=== PATIENT | male | born 1970 | race Caucasian/White ===

== ENCOUNTER 2021-02-05 07:48 | Emergency (ER) | payer OTHER ==
[~2021-02-05] VITALS: Ht 175.3 cm; Wt 102.1 kg
[2021-02-05 07:51] VITALS: BP 161/91
[2021-02-05 08:23] LABS: ABSOLUTE NEUTROPHILS 3.4 thou/uL (1.4-8.2); EOSINOPHILS 2.2 % (0.0-3.0); HEMATOCRIT 48.1 % (42.0-52.0); HEMOGLOBIN 16.2 gm/dL (14.0-18.0); LYMPHOCYTES 25.5 % (24.0-44.0); MCH 29.1 pg (26.0-34.0); MCHC 33.7 g/dL (28.0-37.0); MCV 86.3 fL (80.0-100.0); MONOCYTES 9.5 % (1.0-8.0); PLATELET COUNT 171 thou/uL (150-400); POLYS 61.8 % (36.0-66.0); RBC 5.57 mil/uL (4.50-6.00); RDW 14.5 % (10.5-14.5); WBC 5.4 thou/uL (4.0-11.0)
[2021-02-05 08:32] LABS: ANION GAP 7 mmol/L (7-16); BUN 25 mg/dL (7-18); CALCIUM 9.2 mg/dL (8.5-10.1); CHLORIDE 103 mmol/L (98-107); CO2 28 mmol/L (21-32); GLUCOSE 100 mg/dL (74-106); POTASSIUM 4.4 mmol/L (3.5-5.1); SODIUM 138 mmol/L (136-145)
--- NOTE | 2021-02-05 08:34 | EKG ---
[place] [address] [employer] [place] [address] ELECTROCARDIOGRAM REPORT Name: TOM CHENG Room #: REG CODEY Reyes#: [id number] Admission: 02/05/21 Attend Phys: Discharge: Date of : 70 Report #: [id number] [facility] ED Test Date: 2021-02-05 Test Time: 08:00:49 Pat Name: TOM CHENG Department: Room: Gender: M [employer]ounter [employer]: VANI : 1970 Requested By: Dipika Zambrano Order Number: [id number] MD: Len Morrissey Measurements Intervals [place] Rate: 82 P: 33 HI: 154 QRS: -3 QRSD: 91 T: 1 QT: 340 QTc: 397 Interpretive Statements Sinus rhythm Possible inferior infarct, old No previous ECG available for comparison Electronically Signed On 02-05-2021 8:34:08 CDT by Len Morrissey [email or web address] <ELECTRONICALLY SIGNED> By: Len Morrissey MD, MERGED WITH [facility] 02/05/21 0834 08 08 Len Morrissey MD, FACC /EPI
[2021-02-05 08:43] LABS: ALBUMIN 3.9 g/dL (3.4-5.0); MAGNESIUM 1.9 mg/dL (1.8-2.4); SGOT 21 U/L (15-37); SGPT 32 U/L (16-63); TOTAL BILIRUBIN 0.7 mg/dL (0.2-1.0); TOTAL PROTEIN 7.2 g/dL (6.4-8.2); TROPONIN-I <0.06 ng/mL (<0.06)
[2021-02-05] MEDS ORDERED: AMLODIPINE BESY10 MG PO (08:45)
[2021-02-05] MEDS ORDERED: BENAZEPRIL HCL40 MG PO (08:45)
[2021-02-05] MEDS ORDERED: TESTOSTERO200 MG/1 M IM (08:46)
[2021-02-05] MEDS ORDERED: TADALAFIL20 M1 PO (08:46)
[2021-02-05] MEDS ORDERED: ROSUVASTATIN CA20 MG PO (08:47)
[2021-02-05 10:44] VITALS: BP 136/83
[2021-02-05 10:45] VITALS: BP 136/83
[2021-02-05 10:58] VITALS: BP 132/86
[2021-02-05 12:01] LABS: CHOLESTEROL 202 mg/dL (<200); HDL CHOLESTEROL 41 mg/dL (>40); LDL CHOLESTEROL 134 mg/dL (<100); TC:HDL 4.9 Ratio (Not establshd); TRIGLYCERIDE 135 mg/dL (<150); VLDL 27 mg/dL (<40)
[2021-02-05] MEDS ORDERED: ASA81BEC PO (13:08)
--- NOTE | 2021-02-05 13:29 | EXE ---
[facility] [place] [address] STRESS ECHOCARDIOGRAM Name: TOM CHENG Room #: 170-11 ADM IN M.R.#: [id number] Admission: 02/05/21 Attend Phys: Ross Hill MD Discharge: Date of : 70 Report #: [id number] THIS REPORT FOR: cc: Kennedy Rodriguez MD, David E MD Lundgren, Craig H. MD [facility] ~ APPROVED REPORT Study performed: 02/05/2021 10:45:25 Exam: Stress Echocardiogram Indication: Chest pain Patient Location: ER Stress Nurse: Reena Dumont RN Room #: 11 Status: routine Ht: 5 ft 9 in HR: 93 bpm BP: 146/90 mmHg Rhythm: NSR Medical History Cardiac Risk Factors: HTN, FHX of CAD Exercise History: Indeterminate Procedure The patient underwent an Exercise Stress Test using the Harvey Protocol. Blood pressure, heart rate, and EKG were monitored. An Echocardiogram was performed by target aircraft technician in four stages in quad fashion. At peak stress, four selected images were obtained and placed side by side with resting images for comparison. Stress Test Details Stress Test: Exercise stress testing was performed using a Harvey protocol. HR Resting HR: 93 bpm Max Heart Rate (APMHR): 170 bpm Max HR Achieved: 155 bpm Target HR (85% APMHR): 144 bpm % of APMHR: 91 Recovery HR: 93 bpm HR response to stress: Normal HR response to stress BP Resting BP: 146/90 mmHg [facility] [address] [place] [address] STRESS ECHOCARDIOGRAM Name: TOM CHENG Room #: 170- ADM IN M.R.#: [id number] Admission: 02/05/21 Attend Phys: Ross Hill MD Discharge: Date of : 70 Report #: [id number] Max BP: 180/82 mmHg Recovery BP: 138/78 mmHg BP response to stress: Normal blood pressure response to stress. ECG Resting ECG: Sinus Rhythm Stress ECG: Sinus Tachycardia ST Change: None Maximum ST Deviation: 0 mm Arrhythmia: VPC Recovery ECG: Sinus Rhythm Recovery ST Change: Non-ischemic Recovery ST Deviation: 0 mm Recovery Arrhythmia: None Clinical Reason for Termination: Maximal effort Exercise duration: 8 min 32 sec Highest Stage Achieved: Stage 3: 3.4 mph at 14% grade. Exercise capacity: 10.4 METs Overall Exercise Capacity for Age: Good Angina Score: None Stress ECG Conclusion Clinical: Non-ischemic ECG: Non-ischemic Hutchins Treadmill Score is 8.0 which is Low risk. Pre-Stress Echo The resting Echocardiogram showed normal left ventricular contractility with an estimated Ejection Fraction of about 60-65%. The resting echocardiogram demonstrated normal wall motion in all wall segments. Post-Stress Echo The stress Echocardiogram showed normal left ventricular contractility with an estimated Ejection Fraction of about >70%. Compared to rest, there were no stress-induced wall motion abnormalities. Conclusion Clinical Response: Non-ischemic Exercise Capacity: Average Stress ECG Response: Non-ischemic Stress Echo Images: Non-ischemic Normal stress echocardiogram with maximal exercise stress. [facility] [address] [place] [address] STRESS ECHOCARDIOGRAM Name: TOM CHENG Room #: 170-11 ADM IN M.R.#: [id number] Admission: 02/05/21 Attend Phys: Ross Hill MD Discharge: Date of : 70 Report #: [id number] No prior study available for comparison. Other Information Study Quality: Good <Conclusion> Normal stress echocardiogram with maximal exercise stress. <ELECTRONICALLY SIGNED> By: Len Morrissey MD, FACC 02/05/21 1328 27 132 Len Morrissey MD, FACC /INF
[2021-02-05 13:51] VITALS: BP 130/81
[2021-02-05 14:13] VITALS: BP 124/75
== END 2021-02-05 14:09 | disposition home or self-care (01) ==
LOC: ER 07:48 → EROBS 09:42 → ER 10:59
PROVIDERS: Emergency Medicine; Nurse Practitioner Adult Health
DX: R07.89 Other chest pain (principal); R00.2 Palpitations; R06.02 Shortness of breath; R79.1 Abnormal coagulation profile; I10 Essential (primary) hypertension; E78.00 Pure hypercholesterolemia, unspecified; Z79.899 Other long term (current) drug therapy